=== PATIENT | female | born 1930 | race American Indian/Alaskan Native ===

== ENCOUNTER 2018-07-14 09:33 | Outpatient (CLI) | payer MEDICARE ==
[2018-07-14 10:56] LABS: Creatinine,Urine 111.3 mg/dL (0.1-20.0)
[2018-07-14 11:08] LABS: Hepatitis B Surface Antigen Non-Reactive (Negative); Hepatitis C Virus Antibody Non-Reactive (NonReactive)
[2018-07-14 11:34] LABS: Hematocrit 34.9 % (30.3-42.9); Hemoglobin 11.4 gm/dl (10.1-14.3); Mean Corpuscular HGB Conc 33 % (30-34); Mean Corpuscular Volume 97 fl (79-97); Platelet Count 160 K/mm3 (140-440); Red Blood Count 3.61 M/mm3 (3.65-5.03)
[2018-07-14 11:48] LABS: Albumin 4.5 g/dL (3.9-5); Calcium 10.8 mg/dL (8.4-10.2); Uric Acid 7.3 mg/dL (3.5-7.6)
[2018-07-14 14:19] LABS: Band Neutrophils # (Manual) 0.1 K/mm3; Basophils % (Manual) 0 % (0.0-1.8); Total Cells Counted 100
[2018-07-14 14:20] LABS: Anisocytosis Few; Poikilocytosis Few
--- NOTE | 2018-07-14 15:50 | Vascular Lab Report ---
FINAL REPORT EXAM: VL RENAL VASCULATURE HISTORY: ABNORMAL RESULTS OF KIDNEY FUNCTION STUDIES COMPARISON: None. TECHNIQUE: Duplex Doppler ultrasound of the bilateral renal arteries was performed. FINDINGS: The right kidney measures 8.9 centimeters in length. There is normal cortical thickness. There is no hydronephrosis. There is no echogenic focus or mass. The left kidney measures 8.8 centimeters in length. There is normal cortical thickness. There no hydr onephrosis. There is no echogenic focus or mass. There is a normal waveform of the right renal artery. Peak systolic velocity is 158 centimeters/secon d. The resistive indices of the intrarenal arteries is approximately 0.75. There is a normal waveform of the left renal artery. Peak systolic velocity is 115 centimeters/second . The resistive indices of the intrarenal arteries is approximately 0.7. Peak systolic velocity of the aorta is 93 centimeters/second The peak systolic velocity ratio between the right renal artery and the aorta is 1.69. The peak systolic velocity ratio between the left renal artery and the aorta is 1.24. IMPRESSION: No sonographic evidence for renal artery stenosis.
[2018-07-18 12:18] LABS: ANA Screen, IFA Negative (Negative)
[2018-07-19 15:00] LABS: Aldo/Plasma Renin Act Ratio 39.1 Ratio (0.9-28.9)
== END 2018-07-14 09:34 | disposition home or self-care (01) ==
LOC: VAS 09:33
PROVIDERS: ATTEND Internal Medicine Nephrology
DX: R94.4 Abnormal results of kidney function studies (principal)
CPT/HCPCS: 36415; 80048; 80074; 82040; 82088; 82565; 82570; 82575; 82607; 82747; 83550; 84100; 84156; 84550; 85007; 85025; 86038; 86334; 93975